=== PATIENT | female | born 1940 | race Caucasian/White ===

== ENCOUNTER 2019-06-13 12:32 | Inpatient (IN) ==
[2019-06-13 16:06] VITALS: BMI 35.4
[2019-06-13 16:42] LABS: BASOPHILS # (AUTO) 0.1 X10^3/uL (0.0-0.1); BASOPHILS % (AUTO) 0.8 % (0.2-1.0); EOSINOPHILS # (AUTO) 0.4 x10^3/uL (0.0-0.2); EOSINOPHILS % (AUTO) 3.4 % (0.9-2.9); HEMATOCRIT 27.6 % (36.0-47.0); HEMOGLOBIN 9.1 g/dL (12.0-16.0); LYMPHOCYTES # (AUTO) 3.3 X10^3/uL (1.3-2.9); LYMPHOCYTES % (AUTO) 29.8 % (21.0-51.0); MEAN CORPUSCULAR HEMOGLOBIN 26.9 pg (27.0-34.0); MEAN CORPUSCULAR HGB CONC 32.8 g/dL (33.0-35.0); MEAN CORPUSCULAR VOLUME 82.2 fL (80.0-100.0); MEAN PLATELET VOLUME 7.9 fL (7.4-11.0); MONOCYTES # (AUTO) 1.1 x10^3/uL (0.3-0.8); MONOCYTES % (AUTO) 9.5 % (0.0-13.0); NEUTROPHILS # (AUTO) 6.3 x10^3/uL (2.2-4.8); NEUTROPHILS % (AUTO) 56.5 % (42.0-75.0); PLATELET COUNT 387 X10^3/uL (150.0-450.0); RED BLOOD COUNT 3.36 X10^6/uL (3.5-5.4); RED CELL DISTRIBUTION WIDTH 18.7 % (11.6-16.5); WHITE BLOOD COUNT 11.2 X10^3/uL (3.6-10.0)
[2019-06-13 16:52] LABS: ALANINE AMINOTRANSFERASE 27 Units/L (12-78); ALBUMIN 2.5 g/dL (3.4-5.0); ALKALINE PHOSPHATASE 198 Units/L (46-116); ASPARTATE AMINO TRANSFERASE 30 Units/L (15-37); BLOOD UREA NITROGEN 14 mg/dL (7-18); CALCIUM 9.6 mg/dL (8.5-10.1); CARBON DIOXIDE 27.7 mmol/L (21-32); CHLORIDE 106 mmol/L (98-107); COR CA(FOR HYPOALB) 10.8 mg/dL (8.5-10.1); SODIUM 140 mmol/L (136-145); TOTAL PROTEIN 7.2 g/dL (6.4-8.2); eGFR NON BLACK RACES > 60 (>60)
[2019-06-13] MEDS: NORCO 7.5/325 MG TAB PO PRN (19:31)
[2019-06-14] MEDS: NORCO 7.5/325 MG TAB PO PRN ×2 (06:17→22:34)
[2019-06-14] MEDS ORDERED: PATIENT'S HOME MEDICATION (Vitamin E 400 UNIT) PO SCH (13:15)
[2019-06-14] MEDS ORDERED: ASPIRIN PO SCH (14:00)
[2019-06-14] MEDS: FOLIC ACID TAB 1 MG PO SCH (15:49)
[2019-06-14] MEDS: NORVASC TAB 5 MG PO SCH (15:50)
[2019-06-14] MEDS: VITAMIN D3 PO SCH (15:50)
[2019-06-14] MEDS: PROTONIX TAB 40 MG PO SCH (15:53)
[2019-06-14] MEDS: PLAVIX PO SCH (15:53)
[2019-06-14] MEDS: COZAAR PO SCH (15:53)
[2019-06-14] MEDS: K-DUR TAB 20 MEQ PO SCH (15:54)
[2019-06-15] MEDS: NORCO 7.5/325 MG TAB PO PRN ×2 (04:04→19:02)
[2019-06-15] MEDS ORDERED: MILK OF MAGNESIA PO PRN (06:10)
[2019-06-15] MEDS: K-DUR TAB 20 MEQ PO SCH (09:15)
[2019-06-15] MEDS: PROTONIX TAB 40 MG PO SCH (09:15)
[2019-06-15] MEDS: VITAMIN D3 PO SCH (09:15)
[2019-06-15] MEDS: SENSIPAR PO SCH (09:35)
[2019-06-15] MEDS: COLACE CAP 100 MG PO PRN (09:46)
[2019-06-15] MEDS: PLAVIX PO SCH (09:47)
[2019-06-15] MEDS: COZAAR PO SCH (09:47)
[2019-06-15] MEDS: FOLIC ACID TAB 1 MG PO SCH (09:48)
[2019-06-15] MEDS: NORVASC TAB 5 MG PO SCH (09:49)
[2019-06-15] MEDS ORDERED: BUTT CREAM (COMPOUND) TOP PRN (10:25)
[2019-06-16] MEDS: NORCO 7.5/325 MG TAB PO PRN ×2 (01:02→21:03)
[2019-06-16] MEDS: K-DUR TAB 20 MEQ PO SCH (10:38)
[2019-06-16] MEDS: PROTONIX TAB 40 MG PO SCH (10:38)
[2019-06-16] MEDS: FOLIC ACID TAB 1 MG PO SCH (10:38)
[2019-06-16] MEDS: VITAMIN D3 PO SCH (10:39)
[2019-06-16] MEDS: NORVASC TAB 5 MG PO SCH (10:40)
[2019-06-16] MEDS: PLAVIX PO SCH (10:41)
[2019-06-16] MEDS: COZAAR PO SCH (10:41)
[2019-06-16] MEDS: SENSIPAR PO SCH (10:49)
--- NOTE | 2019-06-16 15:29 | PT/OTEVAL ---
PT/OT OBJECTIVES - HISTORY Prescription: PT consult Diagnosis: Swingbed L AMADOU Precautions: Falls, AMADOU (L) Prior Level of Function: Assistance Required Other, comment: lives c family where she gets min A occasionally c gross functional mob - COGNITION Mental Status: Alert, Oriented, Name, Date, Place, Purpose Communication Status: Verbal, Hard of Hearing Ability to Follow Directions: 2 Step - PAIN Left Hip Pain Scale: Moderate (5-6) - BED MOBILITY Rolling: Minimal Scooting: Moderate Bridging: Moderate - TRANSFERS Supine to Sit: Moderate Sit to Stand: Moderate Sit or Stand Pivot: Moderate Safety Comment: AMADOU precautions. - BALANCE Static Sitting: Fair Standing: Poor Dynamic Sitting: Fair Standing: Total Assist Balance Comment: STanding S/D balance: P/TA - ROM Right LE ROM: WFL Left LE ROM: Impaired (limited testing on L hip joint s/p surgery) - STRENGTH Right LE Other comment: 3+ Left LE Strength Number: 3 - GAIT Pt. ambulates how many feet?: 10 Amount of assistance required: Moderate Amount of Assistance Required: Moderate Type of Assistive Device: Rolling Walker PT/OT ASSESSMENT - PT Problem List: Decreased Bed Mobility, Decreased Transfers, Decreased Gait, Decreased Balance, Decreased Safety, Decreased LE Strength - PT GOALS Short Term Goals Days: 10 Mobility: Pt to be @ set-up clean up A c bed mobility Transfers: Pt to be @ set-up clean up A c functional transfers Gait: Pt to ambulate 80ft @ min A to improve activity tolerance. Balance: Pt to improve sitting balance to G+ to reduce risk from falls. Skilled Nursing Goals Days: 20 Gait: Pt to ambulate 150 ft @ min A c FWRW to increase tolerance. Balance: Pt to improve standing S/D balance to G to reduce risk from falls ROM/Strength: Pt to improve B LE mm strength 1-2 mm increments for stability. - PATIENT GOALS Goals Discussed with Patient/Family: Yes Rehabilitation Potential: Good Weakness and Barriers: Pain - PLAN Suggested Treatment Plan: Bed Mobility Training, Therapeutic Activity, Gait Training, Neuro Re-education, Therapeutic Ex with HEP, Home Management, Patient Education, Family Education - FREQUENCY AND DURATION PT: 6x/week Expected Continuation of Care at Discharge: Determined on Progress Anticipated Equipment Needs: FWRW, AW
--- NOTE | 2019-06-16 15:53 | PT/OTEVAL ---
PT/OT OBJECTIVES - HISTORY Prescription: OT consult Diagnosis: L AMADOU Precautions: hip precaution,fall PMH: hypertension, reflux, coronary artery disease Other: Prior to hospitalization,pt's family lives with patient and was assisting pt with ADLs and functional mobility using FWW but can contribute some as able. Pt has BSC and shower seat at home. Per pt, pt's family does laundy and all other house hold chores. - COGNITION Mental Status: Alert, Oriented, Name, Date, Place, Purpose, Decreased Safety Awarenes Communication Status: Verbal, Hard of Hearing Ability to Follow Directions: 2 Step - PAIN Left Hip Pain Scale: Moderate (5-6) - TRANSFERS Sit to Stand: Moderate Sit or Stand Pivot: Moderate Safety (requires cues for:): Hip Precautions - ADL'S Feeding: Independent Grooming: Setup Upper Body ADL: Moderate Lower Body ADL: Moderate - BALANCE Static Sitting: Fair Standing: Poor Dynamic Sitting: Fair Standing: Total Assist - HAND DOMINANCE Extremity Function: Hand Dominance: Right - ROM Bilateral Shoulder ROM: Impaired Muscle Tone: WFL Comment: LOM on flexion/abduction Bilateral UE ROM: WFL Muscle Tone: WFL Comment: except shoulders all joints are WFL - STRENGTH Right LE Other comment: 3+ Left LE Strength Number: 3 Bilateral Shoulder Strength Number: 3 Other comment: 3- Bilateral UE Strength Number: 3 PT/OT ASSESSMENT - OT Problem List: Decreased Mobility ADL's, Decreased Safety Aware, Decreased Dressing, Decreased Bathing, Decreased UE Strength, Other Other, comment: decreased functional activity tolerance - PT GOALS Short Term Goals Days: 10 Mobility: Pt to be @ set-up clean up A c bed mobility Transfers: Pt to be @ set-up clean up A c functional transfers Gait: Pt to ambulate 80ft @ min A to improve activity tolerance. Balance: Pt to improve sitting balance to G+ to reduce risk from falls. [facility] Goals Days: 20 Gait: Pt to ambulate 150 ft @ min A c FWRW to increase tolerance. Balance: Pt to improve standing S/D balance to G to reduce risk from falls ROM/Strength: Pt to improve B LE mm strength 1-2 mm increments for stability. - OT GOALS [facility] Goals Days: 20 Mobility for ADL's: Pt will improve toilet t/fto supv A with AE as needed Safety Awareness: Pt will demonstrate G safety awareness to decrease fall risk Dressing: Pt will perform UB/LB dressing to supv A with AE as needed. Bathing: Pt will improve bathing skills to supv A level Upper Ext. Strength/Use: Pt will increase BUE strength to 5/5 to increase ADL,t/f and mobility Other: Pt will imporve F.A.T. to G to increase efficiency with ADL Short Term Goals Days: 10 Mobility for ADL's: Pt will improve toilet t/f to min A with AE as needed Safety Awareness: Pt will be able to enumerate and remember hip precautions w/G adherence. Dressing: Pt will perform UB/LB dressing to min A with AE as needed. Bathing: Pt will improve bathing skills to min A level Upper Ext. Strength/Use: Pt will increase BUE strength to 4/5 to increase ADL,t/f and mobility Other: Pt will imporve F.A.T. to G- to increase efficiency with ADL - PATIENT GOALS Patient/Family Goals: return to PLOF Goals Discussed with Patient/Family: Yes Rehabilitation Potential: Good Justification for Potential: G following command, high level of PLOF, G motivation,G family support - PLAN Suggested Treatment Plan: Therapeutic Activity, Gait Training, Self Care Training, Neuro Re-education, Therapeutic Ex with HEP, Home Management, Patient Education, Family Education - FREQUENCY AND DURATION OT: 5x a week x hospital stay Expected Continuation of Care at Discharge: Determined on Progress
[2019-06-17 05:18] LABS: BASOPHILS % (AUTO) 0.5 % (0.2-1.0); EOSINOPHILS # (AUTO) 0.4 x10^3/uL (0.0-0.2); EOSINOPHILS % (AUTO) 4.6 % (0.9-2.9); HEMATOCRIT 24.5 % (36.0-47.0); HEMOGLOBIN 8.1 g/dL (12.0-16.0); LYMPHOCYTES # (AUTO) 2.1 X10^3/uL (1.3-2.9); LYMPHOCYTES % (AUTO) 25.1 % (21.0-51.0); MEAN CORPUSCULAR HEMOGLOBIN 27.1 pg (27.0-34.0); MEAN CORPUSCULAR HGB CONC 33.1 g/dL (33.0-35.0); MEAN PLATELET VOLUME 7.7 fL (7.4-11.0); MONOCYTES # (AUTO) 0.8 x10^3/uL (0.3-0.8); MONOCYTES % (AUTO) 8.9 % (0.0-13.0); NEUTROPHILS # (AUTO) 5.1 x10^3/uL (2.2-4.8); NEUTROPHILS % (AUTO) 60.9 % (42.0-75.0); PLATELET COUNT 358 X10^3/uL (150.0-450.0); RED BLOOD COUNT 2.98 X10^6/uL (3.5-5.4); RED CELL DISTRIBUTION WIDTH 18.9 % (11.6-16.5); WHITE BLOOD COUNT 8.4 X10^3/uL (3.6-10.0)
[2019-06-17 05:34] LABS: ALANINE AMINOTRANSFERASE 26 Units/L (12-78); ALBUMIN 2.3 g/dL (3.4-5.0); ALKALINE PHOSPHATASE 196 Units/L (46-116); ASPARTATE AMINO TRANSFERASE 33 Units/L (15-37); BLOOD UREA NITROGEN 14 mg/dL (7-18); CALCIUM 8.7 mg/dL (8.5-10.1); CARBON DIOXIDE 26.1 mmol/L (21-32); CHLORIDE 108 mmol/L (98-107); COR CA(FOR HYPOALB) 10.1 mg/dL (8.5-10.1); CREATININE 1.01 mg/dL (0.55-1.02); SODIUM 140 mmol/L (136-145); TOTAL PROTEIN 6.4 g/dL (6.4-8.2); eGFR NON BLACK RACES 56 (>60)
[2019-06-17 09:28] LABS: IRON 46 ug/dL (50-175)
[2019-06-17] MEDS: COZAAR PO SCH (10:30)
[2019-06-17] MEDS: PROTONIX TAB 40 MG PO SCH (10:30)
[2019-06-17] MEDS: VITAMIN D3 PO SCH (10:30)
[2019-06-17] MEDS: FOLIC ACID TAB 1 MG PO SCH (10:30)
[2019-06-17] MEDS: K-DUR TAB 20 MEQ PO SCH (10:31)
[2019-06-17] MEDS: PLAVIX PO SCH (10:32)
[2019-06-17] MEDS: NORVASC TAB 5 MG PO SCH (10:32)
[2019-06-17] MEDS: ASPIRIN 81 MG CHEWTAB PO SCH (11:27)
[2019-06-17] MEDS: SENSIPAR PO SCH (11:27)
[2019-06-18 06:45] LABS: BILIRUBIN,URINE NEGATIVE (NEGATIVE); BLOOD/HEMOGLOBIN,URINE 4+ (NEGATIVE); GLUCOSE, URINE NEGATIVE (NEGATIVE); KETONES,URINE NEGATIVE (NEGATIVE); LEUKOCYTE ESTERASE ,URINE NEGATIVE (NEGATIVE); NITRITES,URINE NEGATIVE (NEGATIVE); PROTEIN,URINE NEGATIVE (NEGATIVE); UROBILINOGEN,URINE NORMAL (NORMAL)
[2019-06-18 06:57] LABS: APPEARANCE,URINE SLIGHTLY HAZY (CLEAR); COLOR,URINE YELLOW (YELLOW)
[2019-06-18 06:58] LABS: BACTERIA,URINE NEGATIVE /HPF (NEGATIVE); SQUAMOUS EPITHELIAL CELL,UR RARE /HPF (NEGATIVE)
[2019-06-18] MEDS ORDERED: PROCRIT or EPOGEN VIAL 10,000 UNITS SC ONE (09:20)
[2019-06-18] MEDS: NORCO 7.5/325 MG TAB PO PRN ×2 (09:25→23:39)
[2019-06-18] MEDS: FOLIC ACID TAB 1 MG PO SCH (10:32)
[2019-06-18] MEDS: PROTONIX TAB 40 MG PO SCH (10:32)
[2019-06-18] MEDS: COZAAR PO SCH (10:32)
[2019-06-18] MEDS: K-DUR TAB 20 MEQ PO SCH (10:32)
[2019-06-18] MEDS: NORVASC TAB 5 MG PO SCH (10:33)
[2019-06-18] MEDS: ASPIRIN 81 MG CHEWTAB PO SCH (10:33)
[2019-06-18] MEDS: VITAMIN D3 PO SCH (10:34)
[2019-06-18] MEDS: PLAVIX PO SCH (10:34)
[2019-06-18] MEDS: SENSIPAR PO SCH (10:34)
[2019-06-18] MEDS: MACROBID CAP 100 MG EXT REL PO SCH ×2 (14:48→20:27)
[2019-06-19] MEDS: MACROBID CAP 100 MG EXT REL PO SCH ×2 (09:24→20:56)
[2019-06-19] MEDS: NORVASC TAB 5 MG PO SCH (09:24)
[2019-06-19] MEDS: COZAAR PO SCH (09:24)
[2019-06-19] MEDS: VITAMIN D3 PO SCH (09:24)
[2019-06-19] MEDS: SENSIPAR PO SCH (09:24)
[2019-06-19] MEDS: ASPIRIN 81 MG CHEWTAB PO SCH (09:25)
[2019-06-19] MEDS: FOLIC ACID TAB 1 MG PO SCH (09:25)
[2019-06-19] MEDS: PROTONIX TAB 40 MG PO SCH (09:25)
[2019-06-19] MEDS: PLAVIX PO SCH (09:25)
[2019-06-19] MEDS: K-DUR TAB 20 MEQ PO SCH (09:25)
[2019-06-19] MEDS: COLACE CAP 100 MG PO PRN (11:55)
[2019-06-19] MEDS: NORCO 7.5/325 MG TAB PO PRN (11:55)
[2019-06-20] MEDS: NORCO 7.5/325 MG TAB PO PRN ×2 (01:09→13:14)
[2019-06-20 07:35] LABS: BASOPHILS % (AUTO) 0.7 % (0.2-1.0); EOSINOPHILS # (AUTO) 0.3 x10^3/uL (0.0-0.2); EOSINOPHILS % (AUTO) 4.7 % (0.9-2.9); HEMATOCRIT 25.3 % (36.0-47.0); HEMOGLOBIN 8.2 g/dL (12.0-16.0); LYMPHOCYTES # (AUTO) 1.8 X10^3/uL (1.3-2.9); LYMPHOCYTES % (AUTO) 28.5 % (21.0-51.0); MEAN CORPUSCULAR HEMOGLOBIN 26.3 pg (27.0-34.0); MEAN CORPUSCULAR HGB CONC 32.4 g/dL (33.0-35.0); MEAN CORPUSCULAR VOLUME 81.1 fL (80.0-100.0); MEAN PLATELET VOLUME 7.4 fL (7.4-11.0); MONOCYTES # (AUTO) 0.6 x10^3/uL (0.3-0.8); MONOCYTES % (AUTO) 9.6 % (0.0-13.0); NEUTROPHILS # (AUTO) 3.6 x10^3/uL (2.2-4.8); NEUTROPHILS % (AUTO) 56.5 % (42.0-75.0); PLATELET COUNT 358 X10^3/uL (150.0-450.0); RED BLOOD COUNT 3.12 X10^6/uL (3.5-5.4); WHITE BLOOD COUNT 6.5 X10^3/uL (3.6-10.0)
[2019-06-20 07:45] LABS: ALANINE AMINOTRANSFERASE 20 Units/L (12-78); ALBUMIN 2.4 g/dL (3.4-5.0); ALKALINE PHOSPHATASE 195 Units/L (46-116); ASPARTATE AMINO TRANSFERASE 32 Units/L (15-37); BLOOD UREA NITROGEN 13 mg/dL (7-18); CALCIUM 8.7 mg/dL (8.5-10.1); CARBON DIOXIDE 25.1 mmol/L (21-32); CHLORIDE 106 mmol/L (98-107); CREATININE 0.81 mg/dL (0.55-1.02); SODIUM 139 mmol/L (136-145); TOTAL PROTEIN 6.5 g/dL (6.4-8.2); eGFR NON BLACK RACES > 60 (>60)
[2019-06-20] MEDS: PLAVIX PO SCH (10:25)
[2019-06-20] MEDS: ASPIRIN 81 MG CHEWTAB PO SCH (10:25)
[2019-06-20] MEDS: PROTONIX TAB 40 MG PO SCH (10:26)
[2019-06-20] MEDS: NORVASC TAB 5 MG PO SCH (10:26)
[2019-06-20] MEDS: MACROBID CAP 100 MG EXT REL PO SCH ×2 (10:26→21:08)
[2019-06-20] MEDS: K-DUR TAB 20 MEQ PO SCH (10:26)
[2019-06-20] MEDS: SENSIPAR PO SCH (10:26)
[2019-06-20] MEDS: FOLIC ACID TAB 1 MG PO SCH (10:27)
[2019-06-20] MEDS: COZAAR PO SCH (10:27)
[2019-06-20] MEDS: COLACE CAP 100 MG PO PRN (17:15)
[2019-06-21] MEDS: NORCO 7.5/325 MG TAB PO PRN ×2 (06:06→21:47)
[2019-06-21] MEDS: K-DUR TAB 20 MEQ PO SCH (09:11)
[2019-06-21] MEDS: COZAAR PO SCH (09:11)
[2019-06-21] MEDS: NORVASC TAB 5 MG PO SCH (09:12)
[2019-06-21] MEDS: MACROBID CAP 100 MG EXT REL PO SCH (09:12)
[2019-06-21] MEDS: FOLIC ACID TAB 1 MG PO SCH (09:12)
[2019-06-21] MEDS: PROTONIX TAB 40 MG PO SCH (09:12)
[2019-06-21] MEDS: PLAVIX PO SCH (09:13)
[2019-06-21] MEDS: SENSIPAR PO SCH (09:17)
[2019-06-21] MEDS: ASPIRIN 81 MG CHEWTAB PO SCH (09:18)
--- NOTE | 2019-06-21 14:00 | PCM.PROG ---
Progress Note Progress Note for Day of Date of Exam: 06/21/19 Subjective Subjective: Patient admitted for rehab therapy post left hip replacement. She has been doing well, working well with PT, able to ambulate. Denies any acute concerns. Past Medical Family Social History Past Med/Fam/Surg Hx: No changes since H&P Allergies: Allergies Latex, Natural Rubber Allergy (Unknown, Verified 06/13/19 14:08) Review of Systems ROS: No change since H&P Vital Signs and I&O's Vital Signs: Temperature 98.2 F Pulse Rate [Right Brachial] 82 Pulse Rate [Left Brachial] 75 Respiratory Rate 20 Blood Pressure [Right Arm] 165/70 Blood Pressure [Left Arm] 146/65 O2 Sat by Pulse Oximetry 99 Intake and Output: Intake & Output 06/18/19 06/19/19 06/20/19 06/21/19 23:59 23:59 23:59 23:59 Intake Total 1460 / 1460 890 / 890 1660 / 1660 600 / 600 Balance 1460 / 1460 890 / 890 1660 / 1660 600 / 600 Physical Exam Oriented: Normal Respiratory: Normal Cardiovascular: Normal; negative Edema Auscultation: Bowel Sounds: Normal Tenderness: Normal Skin: Normal Musculoskeletal: Normal Mood Description: Calm Speech Pattern: Clear and Appropriate Laboratory and Diagnostics Result Diagrams: 06/20/19 07:23 06/20/19 07:23 Labs: Laboratory WBC 6.5 X10^3/uL (3.6-10.0) 06/20/19 07:23 RBC 3.12 X10^6/uL (3.5-5.4) L 06/20/19 07:23 Hgb 8.2 g/dL (12.0-16.0) L 06/20/19 07:23 Hct 25.3 % (36.0-47.0) L 06/20/19 07:23 MCV 81.1 fL (80.0-100.0) 06/20/19 07:23 MCH 26.3 pg (27.0-34.0) L 06/20/19 07:23 MCHC 32.4 g/dL (33.0-35.0) L 06/20/19 07:23 RDW 19.0 % (11.6-16.5) H 06/20/19 07:23 Plt Count 358 X10^3/uL (150.0-450.0) 06/20/19 07:23 MPV 7.4 fL (7.4-11.0) 06/20/19 07:23 Neut % (Auto) 56.5 % (42.0-75.0) 06/20/19 07:23 Lymph % (Auto) 28.5 % (21.0-51.0) 06/20/19 07:23 [place] % (Auto) 9.6 % (0.0-13.0) 06/20/19 07:23 Eos % (Auto) 4.7 % (0.9-2.9) H 06/20/19 07:23 Baso % (Auto) 0.7 % (0.2-1.0) 06/20/19 07:23 Neut # (Auto) 3.6 x10^3/uL (2.2-4.8) 06/20/19 07:23 Lymph # (Auto) 1.8 X10^3/uL (1.3-2.9) 06/20/19 07:23 [place] # (Auto) 0.6 x10^3/uL (0.3-0.8) 06/20/19 07:23 Eos # (Auto) 0.3 x10^3/uL (0.0-0.2) H 06/20/19 07:23 Baso # (Auto) 0.0 X10^3/uL (0.0-0.1) 06/20/19 07:23 Absolute Nucleated RBC 0.0 /100WBC 06/20/19 07:23 Sodium 139 mmol/L (136-145) 06/20/19 07:23 Corrected Sodium TNP 06/20/19 07:23 Potassium 3.9 mmol/L (3.5-5.1) 06/20/19 07:23 Chloride 106 mmol/L (98-107) 06/20/19 07:23 Carbon Dioxide 25.1 mmol/L (21-32) 06/20/19 07:23 BUN 13 mg/dL (7-18) 06/20/19 07:23 Creatinine 0.81 mg/dL (0.55-1.02) 06/20/19 07:23 Est GFR (MDRD) Af Amer > 60 (>60) 06/20/19 07:23 Est GFR (MDRD) Non-Af > 60 (>60) 06/20/19 07:23 Glucose 94 mg/dL (65-99) 06/20/19 07:23 Calcium 8.7 mg/dL (8.5-10.1) 06/20/19 07:23 Corrected Calcium 10.0 mg/dL (8.5-10.1) 06/20/19 07:23 Iron 46 ug/dL (50-175) L 06/17/19 08:35 Transferrin 258 mg/dL (202-364) 06/17/19 08:35 Ferritin 241 ng/mL (8-252) 06/17/19 08:35 Total Bilirubin 0.20 mg/dL (0.2-1.0) 06/20/19 07:23 AST 32 Units/L (15-37) 06/20/19 07:23 ALT 20 Units/L (12-78) 06/20/19 07:23 Alkaline Phosphatase 195 Units/L (46-116) H 06/20/19 07:23 Total Protein 6.5 g/dL (6.4-8.2) 06/20/19 07:23 Albumin 2.4 g/dL (3.4-5.0) L 06/20/19 07:23 Globulin 4.1 g/dL (2.5-4.5) 06/20/19 07:23 Albumin/Globulin Ratio 0.6 Ratio (1.1-2.1) L 06/20/19 07:23 Vitamin B12 358 pg/mL (193-986) 06/17/19 08:35 Folate > 20.0 ng/mL (>8.6) 06/17/19 08:35 Specimen Type Catherized urine 06/18/19 06:11 Urine Color Yellow (YELLOW) 06/18/19 06:11 Urine Appearance Slightly hazy (CLEAR) 06/18/19 06:11 Urine pH 7.0 (5.0 - 8.0) 06/18/19 06:11 Ur Specific [place] 1.010 (1.000-1.030) 06/18/19 06:11 Urine Protein Negative (NEGATIVE) 06/18/19 06:11 Urine Glucose (UA) Negative (NEGATIVE) 06/18/19 06:11 Urine Ketones Negative (NEGATIVE) 06/18/19 06:11 Urine Occult Blood 4+ (NEGATIVE) 06/18/19 06:11 Urine Nitrite Negative (NEGATIVE) 06/18/19 06:11 Urine Bilirubin Negative (NEGATIVE) 06/18/19 06:11 Urine Urobilinogen Normal (NORMAL) 06/18/19 06:11 Ur Leukocyte Esterase Negative (NEGATIVE) 06/18/19 06:11 Urine RBC 10-20 /HPF (0-3) A 06/18/19 06:11 Urine WBC 0-2 /HPF (0-5) 06/18/19 06:11 Ur Squamous Epith Cells Rare /HPF (NEGATIVE) 06/18/19 06:11 Urine Bacteria Negative /HPF (NEGATIVE) 06/18/19 06:11 Ur Culture Indicated? No/not indicated 06/18/19 06:11 Plan (1) S/P hip replacement: Status: Acute Qualifiers: Laterality: left Qualified Code(s): Z96.642 - Presence of left artificial hip joint Plan: Patient doing well, working with PT. Continue current treatment, pain control as needed. Fall precautions, monitor improvement. (2) Generalized weakness: Status: Acute
[2019-06-22] MEDS: NORCO 7.5/325 MG TAB PO PRN ×2 (07:39→21:04)
[2019-06-22] MEDS: COZAAR PO SCH (08:49)
[2019-06-22] MEDS: PROTONIX TAB 40 MG PO SCH (08:49)
[2019-06-22] MEDS: FOLIC ACID TAB 1 MG PO SCH (08:50)
[2019-06-22] MEDS: ASPIRIN 81 MG CHEWTAB PO SCH (08:50)
[2019-06-22] MEDS: K-DUR TAB 20 MEQ PO SCH (08:50)
[2019-06-22] MEDS: NORVASC TAB 5 MG PO SCH (08:50)
[2019-06-22] MEDS: PLAVIX PO SCH (09:00)
[2019-06-22] MEDS: COLACE CAP 100 MG PO PRN ×2 (09:03→21:10)
[2019-06-22] MEDS: SENSIPAR PO SCH (09:06)
[2019-06-23 05:31] LABS: BASOPHILS % (AUTO) 0.4 % (0.2-1.0); EOSINOPHILS # (AUTO) 0.3 x10^3/uL (0.0-0.2); HEMATOCRIT 24.3 % (36.0-47.0); LYMPHOCYTES # (AUTO) 1.8 X10^3/uL (1.3-2.9); LYMPHOCYTES % (AUTO) 26.7 % (21.0-51.0); MEAN CORPUSCULAR HEMOGLOBIN 26.7 pg (27.0-34.0); MEAN CORPUSCULAR VOLUME 80.9 fL (80.0-100.0); MEAN PLATELET VOLUME 8.1 fL (7.4-11.0); MONOCYTES # (AUTO) 0.7 x10^3/uL (0.3-0.8); MONOCYTES % (AUTO) 11.4 % (0.0-13.0); NEUTROPHILS # (AUTO) 3.7 x10^3/uL (2.2-4.8); NEUTROPHILS % (AUTO) 56.5 % (42.0-75.0); PLATELET COUNT 355 X10^3/uL (150.0-450.0); RED CELL DISTRIBUTION WIDTH 18.1 % (11.6-16.5); WHITE BLOOD COUNT 6.6 X10^3/uL (3.6-10.0)
[2019-06-23 05:43] LABS: ALANINE AMINOTRANSFERASE 19 Units/L (12-78); ALBUMIN 2.4 g/dL (3.4-5.0); ALKALINE PHOSPHATASE 204 Units/L (46-116); ASPARTATE AMINO TRANSFERASE 23 Units/L (15-37); BLOOD UREA NITROGEN 13 mg/dL (7-18); CALCIUM 8.6 mg/dL (8.5-10.1); CARBON DIOXIDE 25.6 mmol/L (21-32); CHLORIDE 104 mmol/L (98-107); COR CA(FOR HYPOALB) 9.9 mg/dL (8.5-10.1); CREATININE 0.76 mg/dL (0.55-1.02); SODIUM 137 mmol/L (136-145); TOTAL PROTEIN 6.6 g/dL (6.4-8.2); eGFR NON BLACK RACES > 60 (>60)
[2019-06-23] MEDS: NORCO 7.5/325 MG TAB PO PRN ×2 (08:15→18:40)
[2019-06-23] MEDS: ASPIRIN 81 MG CHEWTAB PO SCH (08:54)
[2019-06-23] MEDS: PROTONIX TAB 40 MG PO SCH (08:54)
[2019-06-23] MEDS: K-DUR TAB 20 MEQ PO SCH (08:54)
[2019-06-23] MEDS: FOLIC ACID TAB 1 MG PO SCH (08:54)
[2019-06-23] MEDS: SENSIPAR PO SCH (08:54)
[2019-06-23] MEDS: PLAVIX PO SCH (08:54)
[2019-06-23] MEDS: NORVASC TAB 5 MG PO SCH (08:55)
[2019-06-23] MEDS: COZAAR PO SCH (08:55)
[2019-06-23] MEDS ORDERED: PROCRIT or EPOGEN VIAL 10,000 UNITS SC ONE (09:26)
[2019-06-23] MEDS ORDERED: PROCRIT or EPOGEN VIAL 10,000 UNITS SC NR (15:00)
[2019-06-24] MEDS: NORCO 7.5/325 MG TAB PO PRN ×3 (06:17→20:18)
[2019-06-24] MEDS: FOLIC ACID TAB 1 MG PO SCH (10:31)
[2019-06-24] MEDS: NORVASC TAB 5 MG PO SCH (10:32)
[2019-06-24] MEDS: SENSIPAR PO SCH (10:32)
[2019-06-24] MEDS: PROTONIX TAB 40 MG PO SCH (10:34)
[2019-06-24] MEDS: COZAAR PO SCH (10:35)
[2019-06-24] MEDS: K-DUR TAB 20 MEQ PO SCH (10:35)
[2019-06-24] MEDS: ASPIRIN 81 MG CHEWTAB PO SCH (10:36)
[2019-06-24] MEDS: PLAVIX PO SCH (10:37)
[2019-06-25] MEDS: NORCO 7.5/325 MG TAB PO PRN ×2 (05:43→11:32)
[2019-06-25] MEDS: PLAVIX PO SCH (09:15)
[2019-06-25] MEDS: SENSIPAR PO SCH (09:16)
[2019-06-25] MEDS: COLACE CAP 100 MG PO PRN (09:16)
[2019-06-25] MEDS: K-DUR TAB 20 MEQ PO SCH (09:16)
[2019-06-25] MEDS: FOLIC ACID TAB 1 MG PO SCH (09:16)
[2019-06-25] MEDS: COZAAR PO SCH (09:17)
[2019-06-25] MEDS: PROTONIX TAB 40 MG PO SCH (09:17)
[2019-06-25] MEDS: NORVASC TAB 5 MG PO SCH (09:17)
[2019-06-25] MEDS: ASPIRIN 81 MG CHEWTAB PO SCH (09:17)
[2019-06-25] MEDS: BACTRIM DS TAB PO SCH ×2 (10:55→20:35)
[2019-06-26] MEDS: NORCO 7.5/325 MG TAB PO PRN (04:50)
[2019-06-26 05:40] LABS: BASOPHILS # (AUTO) 0.1 X10^3/uL (0.0-0.1); EOSINOPHILS # (AUTO) 0.4 x10^3/uL (0.0-0.2); EOSINOPHILS % (AUTO) 7.3 % (0.9-2.9); HEMATOCRIT 25.4 % (36.0-47.0); HEMOGLOBIN 8.4 g/dL (12.0-16.0); LYMPHOCYTES # (AUTO) 1.7 X10^3/uL (1.3-2.9); LYMPHOCYTES % (AUTO) 29.3 % (21.0-51.0); MEAN CORPUSCULAR HEMOGLOBIN 26.8 pg (27.0-34.0); MEAN CORPUSCULAR HGB CONC 33.2 g/dL (33.0-35.0); MEAN CORPUSCULAR VOLUME 80.6 fL (80.0-100.0); MEAN PLATELET VOLUME 8.4 fL (7.4-11.0); MONOCYTES # (AUTO) 0.6 x10^3/uL (0.3-0.8); MONOCYTES % (AUTO) 10.3 % (0.0-13.0); NEUTROPHILS % (AUTO) 52.1 % (42.0-75.0); PLATELET COUNT 298 X10^3/uL (150.0-450.0); RED BLOOD COUNT 3.14 X10^6/uL (3.5-5.4); RED CELL DISTRIBUTION WIDTH 18.3 % (11.6-16.5); WHITE BLOOD COUNT 5.8 X10^3/uL (3.6-10.0)
[2019-06-26 05:50] LABS: ALANINE AMINOTRANSFERASE 16 Units/L (12-78); ALBUMIN 2.4 g/dL (3.4-5.0); ALKALINE PHOSPHATASE 210 Units/L (46-116); ASPARTATE AMINO TRANSFERASE 21 Units/L (15-37); BLOOD UREA NITROGEN 12 mg/dL (7-18); CALCIUM 8.6 mg/dL (8.5-10.1); CARBON DIOXIDE 25.7 mmol/L (21-32); CHLORIDE 106 mmol/L (98-107); CREATININE 0.86 mg/dL (0.55-1.02); SODIUM 137 mmol/L (136-145); TOTAL PROTEIN 6.7 g/dL (6.4-8.2); eGFR NON BLACK RACES > 60 (>60)
[2019-06-26 05:51] LABS: COR CA(FOR HYPOALB) 9.9 mg/dL (8.5-10.1)
[2019-06-26] MEDS: NORVASC TAB 5 MG PO SCH (08:42)
[2019-06-26] MEDS: FOLIC ACID TAB 1 MG PO SCH (08:42)
[2019-06-26] MEDS: COLACE CAP 100 MG PO PRN (08:42)
[2019-06-26] MEDS: PLAVIX PO SCH (08:43)
[2019-06-26] MEDS: BACTRIM DS TAB PO SCH (08:43)
[2019-06-26] MEDS: ASPIRIN 81 MG CHEWTAB PO SCH (08:43)
[2019-06-26] MEDS: SENSIPAR PO SCH (08:43)
[2019-06-26] MEDS: K-DUR TAB 20 MEQ PO SCH (08:43)
[2019-06-26] MEDS: COZAAR PO SCH (09:30)
[2019-06-26] MEDS: PROTONIX TAB 40 MG PO SCH (09:30)
[2019-06-26 10:53] VITALS: BP 141/67
== END 2019-06-26 13:15 | disposition home or self-care (01) | DRG 554 ==
LOC: MED/SURG 12:34
PROVIDERS: ADMIT Obstetrics & Gynecology Obstetrics; ATTEND Obstetrics & Gynecology Obstetrics
DX: Y92.230 Patient room in hospital as the place of occurrence of the external cause; I25.10 Atherosclerotic heart disease of native coronary artery without angina pectoris; R26.89 Other abnormalities of gait and mobility; Z96.642 Presence of left artificial hip joint; L02.31 Cutaneous abscess of buttock; I10 Essential (primary) hypertension; Z51.89 Encounter for other specified aftercare; K21.9 Gastro-esophageal reflux disease without esophagitis; W18.39XA Other fall on same level, initial encounter; M16.12 Unilateral primary osteoarthritis, left hip; B96.89 Other specified bacterial agents as the cause of diseases classified elsewhere
CPT/HCPCS: 36415; 80053; 81001; 82607; 82728; 82746; 83540; 84466; 85025; 97110; 97112; 97116; 97162; 97166; 97530; 97535; J0885